=== PATIENT | male | born 2005 | race Caucasian/White ===

== ENCOUNTER 2024-07-22 04:28 | Emergency (ER) | payer OTHER, SELFPAY ==
--- NOTE | 2024-07-22 | ECG_ITS ---
Test Reason : CHEST PAIN Blood Pressure : / mmHG Vent. Rate : 123 BPM Atrial Rate : 123 BPM P-R Int : 140 ms QRS Dur : 092 ms QT Int : 308 ms P-R-T Axes : 063 070 028 degrees QTc Int : 440 ms Sinus tachycardia Nonspecific T wave abnormality Abnormal ECG No previous ECGs available Referred By: Generic ED Physician Electronically Signed By:GINNA ARELLANO MD
--- NOTE | ~2024-07-22 | XR_ITS ---
CLINICAL HISTORY: chest pain, flu like symptoms 2 view chest x-ray Comparison: None Findings: The lungs are clear. Heart size is normal. No acute fracture. Webber rods are present. IMPRESSION: 1. No acute findings. This document has been electronically signed by: Blake Cabrales MD on 07/22/2024 05:35:30
[2024-07-22 04:39] VITALS: BP 129/66; PULSE 122; RESP 18; TEMP 38; O2SAT 96; BMI 25.3
--- NOTE | 2024-07-22 04:52 | PC.NURSE ---
charge manager made aware of sx/vitals.
[2024-07-22 05:02] LABS: MANUAL DIFF FLAG NO
[2024-07-22 05:03] LABS: Basophils Percent Auto 0.3 % (0-2); Eosinophils Absolute Auto 0.1 X10*3/uL (0.0-0.4); Hematocrit 42.5 % (42.0-52.0); Hemoglobin 15.4 g/dl (14.0-18.0); Imm Gran Abs Auto 0.01 X10*3/uL (0.00-0.03); Imm Gran Pct Auto 0.2 % (0.0-0.4); Lymphocytes Absolute Auto 0.6 X10*3/uL (1.2-4.9); Lymphocytes Percent Auto 9.5 % (20-40); Mean Corpuscular HGB Conc 36.2 g/dl (31.0-36.0); Mean Corpuscular Hemoglobin 29.6 pg (27.0-33.0); Mean Corpuscular Volume 81.7 fL (80.0-98.0); Mean Platelet Volume 10.1 fL (9.4-12.4); Monocytes Absolute Auto 0.7 X10*3/uL (0.1-1.2); Monocytes Percent Auto 11.1 % (2-11); Neutrophils Absolute Auto 4.9 x10*3/uL (2.0-8.3); Neutrophils Percent Auto 77.9 % (45-73); Platelet Count 171 X10*3/uL (160-400); Red Cell Distribution Width 12.3 % (11.0-16.0); White Blood Count 6.2 X10*3/uL (4.8-10.8)
[2024-07-22 05:08] LABS: IDNOW Serial# 08D9AD1C; Strep A Nucleic Acid Negative (Negative)
[2024-07-22 05:15] LABS: Alanine Aminotransferase 36 U/L (0-40); Albumin Level 4.7 g/dL (3.5-5.0); Alkaline Phosphatase 80 U/L (39-117); Anion Gap 16 (12-20); Aspartate Amino Transferase 30 U/L (5-37); Bilirubin Total 1.9 mg/dL (0.0-1.0); Blood Urea Nitrogen 13 mg/dL (9-16); Calcium 9.9 mg/dL (8.4-10.2); Carbon Dioxide 22 mmol/L (22-29); Chloride 106 mmol/L (96-108); Creatinine Clr Calc Pharmacy 139.2; Estimated Glomerular Filt Rate > 60; Glucose Random 99 mg/dL (60-115); Potassium 4.2 mmol/L (3.3-5.1); Sodium 140 mmol/L (135-145); Total Protein 7.9 g/dL (6.5-8.0)
[2024-07-22 05:23] LABS: Troponin-I High Sensitivity < 2.7 ng/L (<3.5-35.0)
[2024-07-22 05:40] LABS: Influenza A PCR POSITIVE (Negative); Influenza B PCR NEGATIVE (Negative); Resp Syncy Virus RNA Qual PCR NEGATIVE (Negative); SARS COV2 PCR INHOUSE NEGATIVE (Negative)
[2024-07-22 06:48] VITALS: BP 127/71; PULSE 111; RESP 18; TEMP 37.6; O2SAT 97
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
--- NOTE | 2024-07-22 07:20 | ED_ITS ---
HPI - General Adult General Chief complaint: General Medical Stated complaint: chest pain Time Seen by Provider: 07/22/24 07:02 Source: patient Mode of arrival: ambulatory Limitations: no limitations History of Present Illness ED Provider: Nela Daniel APRN HPI narrative: 19-year-old male with a history juvenile asthma, muscular dystrophy (ambulatory), Friedreich's ataxia, Charcot Katy presents to the ER with greater than 3 days subjective fevers, chills, body ache, chest discomfort with coughing, nausea, generalized weakness. Patient here with sister who has similar symptoms. Denies shortness of breath, neck pain, neck stiffness, vomiting, diarrhea, skin rash. Related Data Previous Rx's ?Medication ?Instructions ?Recorded albuterol sulfate 2.5 mg/0.5 mL 5 mg inhalation QID PRN shortness 07/22/24 solution for nebulization of breath or wheezing #30 ea albuterol sulfate 90 mcg/actuation 2 puff inhalation Q4H PRN 07/22/24 aerosol inhaler shortness of breath or wheezing #6.7 grams Allergies Allergy/AdvReac Type Severity Reaction Status Date / Time No Known Allergies Allergy Verified 07/22/24 04:44 Review of Systems 2 Review of Systems: Yes all other systems are reviewed and are negative Constitutional: Constitutional: Reports no additional constitutional complaints, Reports body ache(s), Reports chills, Reports fever(s), Denies headache(s) and Reports weakness Eyes: Eyes: Reports no additional eye complaints and Denies change in vision ENT: Reports system reviewed and no additional complaints, except as documented, Denies dizziness, Denies headache(s), Denies nasal congestion, Denies nasal discharge and Denies neck pain Cardiovascular: Cardiovascular: Reports no additional cardiovascular complaints, Reports chest pain, Denies leg edema and Denies dyspnea Respiratory: Respiratory: Reports no additional respiratory complaints, Reports cough and Denies dyspnea Gastrointestinal: Gastrointestinal: Reports no additional gastrointestinal complaints, Denies abdominal pain, Denies diarrhea, Reports nausea and Denies vomiting Genitourinary: Genitourinary: Denies urinary incontinence Musculoskeletal: Musculoskeletal: Reports no additional musculoskeletal complaints, Denies back pain, Denies arthralgias, Denies joint swelling, Denies neck pain, Denies numbness and Denies tingling Integumentary/Breasts: Skin/Breast: Reports system reviewed and no additional complaints, except as docu and Denies rash Neurologic: Reports system reviewed and no additional complaints, except as documented, Denies Abnormal speech present, Denies dizziness, Denies headache(s), Denies numbness, Denies tingling and Reports weakness PMFSH Past Medical History Attestation statement: The following information was validated with the patient. Source: old records reviewed and nursing notes reviewed Social History Social History Advance Directives: No Advance Directives Information Provided: Yes Do you have a plan to hurt others: No Plan Physical Exam ED Vital Signs: Vital Signs - 24 hr 07/22/24 04:39 07/22/24 06:48 Temperature 100.4 F 99.7 F Pulse Rate 122 H 111 H Respiratory Rate 18 18 Blood Pressure 129/66 127/71 Pulse Oximetry 96 97 Oxygen Delivery Method Room Air Room Air BMI result Body Mass Index 25.3 Const General: cooperative, healthy appearing, comfortable and no acute distress Orientation/consciousness: patient oriented x3 Limitations: no limitations HENMT Head: Yes normal to inspection Ears: hearing grossly normal bilaterally and TM's normal bilaterally General nose exam: Normal external nose present Face and sinus: Yes normal facial exam Mouth: Normal oral and palatal mucosa present Throat: Yes posterior oropharynx normal, Yes tonsils normal and Yes uvula midline Eyes General: appearance normal, both eyes and all related structures Pupils: Equal, round and reactive pupils present Neck Neck: Yes normal visual inspection, Yes full ROM, Yes no lymphadenopathy and Yes no meningeal signs Chest Chest palpation & inspection: normal inspection of the chest Resp Other: Mild expiratory wheezing Effort & Inspection: normal respiratory effort Cardio Rate: regular rate Rhythm: regular rhythm Peripheral pulses: Peripheral pulses 2+ throughout GI Inspection: Yes normal to inspection Palpation (GI): Soft to palpation and nontender Auscultation: normal bowel sounds Back/Spine/Pelvis Thoracic/Lumbar Spine: thoracic and lumbar spine normal to inspection Skin General skin exam: no rashes or lesions noted Neuro General: patient oriented x3, moves all extremities, no meningeal signs, no focal motor deficits and normal sensation to monofilament Cranial nerves: Yes CN's II-XII intact bilaterally, Yes Equal, round and reactive pupils present, Yes Bilaterally intact EOM present, Yes Nystagmus not present, Yes Normal facial strength present and Yes Midline tongue present Cognition (Neuro): normal cognition Speech: No Abnormal speech present Gait exam (Neuro): Normal gait present Motor exam (neuro): 5/5 motor strength present throughout Sensory Exam: Normal double simultaneous stimulation for sensation Extrem General: Yes normal to inspection, Yes no pedal edema and Yes no calf tenderness Course Course Course Narrative: Influenza A positive with no hypoxia or tachypnea requiring supplemental oxygen or admission to the hospital. Patient is up and ambulatory with a steady gait with normal neurological exam. He is able to eat and drink with no vomiting. He has some mild tachycardia otherwise his vitals are stable. He can orally hydrate at home. Stable for discharge with strict return precautions. Medical Decision Making Medical Decision Making MDM Narrative: 19-year-old male with a history juvenile asthma, muscular dystrophy (ambulatory), Friedreich's ataxia, Charcot Katy presents to the ER with greater than 3 days subjective fevers, chills, body ache, chest discomfort with coughing, nausea, generalized weakness. On arrival patient had low-grade fever and tachycardia which is likely secondary to viral illness. No hypoxia or tachypnea. Stable blood pressure This is a normal exam no focal deficits. He does have some mild expiratory wheezing and reports that he has an albuterol nebulizer machine at home which he uses when ill. Will obtain labs, chest x-ray, viral testing Will review EKG from triage Differential Diagnosis Differential Diagnoses: The differential diagnosis associated with the presentation includes Viral syndrome, influenza, pneumonia Low suspicion for PE-no hypoxia, no tachypnea, no clinical findings concerning for DVT, no risk factors for same Low suspicion for ACS-HPI is atypical, symptoms for greater than 3 days with nonischemic EKG and negative troponin Admission/Observation Consideration of admission/observation: Escalation of care including admission/observation considered see course of care Lab Data [facility] Lab Attestation statement: I reviewed the patient's lab results. 07/22/24 04:54 07/22/24 04:54 Labs: Lab Results 07/22/24 07/22/24 Range/Units 04:54 04:55 WBC 6.2 (4.8-10.8) X10*3/uL RBC 5.20 (4.60-5.80) X10*6/uL Hgb 15.4 (14.0-18.0) g/dl Hct 42.5 (42.0-52.0) % MCV 81.7 (80.0-98.0) fL MCH 29.6 (27.0-33.0) pg MCHC 36.2 H (31.0-36.0) g/dl RDW 12.3 (11.0-16.0) % Plt Count 171 (160-400) X10*3/uL MPV 10.1 (9.4-12.4) fL Immature Gran % (Auto) 0.2 (0.0-0.4) % Neut % (Auto) 77.9 H (45-73) % Lymph % (Auto) 9.5 L (20-40) % Emmons % (Auto) 11.1 H (2-11) % Eos % (Auto) 1.0 (0-4) % Baso % (Auto) 0.3 (0-2) % Lymph # (Auto) 0.6 L (1.2-4.9) X10*3/uL Emmons # (Auto) 0.7 (0.1-1.2) X10*3/uL Eos # (Auto) 0.1 (0.0-0.4) X10*3/uL Baso # (Auto) 0.0 (0.0-0.2) X10*3/uL Abs Immat Gran (auto) 0.01 (0.00-0.03) X10*3/uL Absolute Neuts (auto) 4.9 (2.0-8.3) x10*3/uL Absolute Nucleated RBC 0.000 (0.0-0.012) X10*3/uL Nucleated RBC % (auto) 0.0 (0.0-0.2) /100WBC Sodium 140 (135-145) mmol/L Potassium 4.2 (3.3-5.1) mmol/L Chloride 106 (96-108) mmol/L Carbon Dioxide 22 (22-29) mmol/L Anion Gap 16 (12-20) BUN 13 (9-16) mg/dL Creatinine 0.73 (0.5-1.4) mg/dL Estim Creat Clear Calc 139.2 Estimated GFR > 60 Random Glucose 99 (60-115) mg/dL Calcium 9.9 (8.4-10.2) mg/dL Total Bilirubin 1.9 H (0.0-1.0) mg/dL AST 30 (5-37) U/L ALT 36 (0-40) U/L Alkaline Phosphatase 80 (39-117) U/L Troponin I High Sens < 2.7 (<3.5-35.0) ng/L Total Protein 7.9 (6.5-8.0) g/dL Albumin 4.7 (3.5-5.0) g/dL Influenza Type A (PCR) POSITIVE A (Negative) Influenza Type B (PCR) NEGATIVE (Negative) RSV RNA Qual (PCR) NEGATIVE (Negative) SARS-CoV-2 RNA (RT-PCR) NEGATIVE (Negative) S. pyogenes GrpA PILY Negative (Negative) Independent Interpretation I performed an independent interpretation of an: EKG and Plain X-Ray Interpretation: I independently viewed the chest x-ray and agree with the radiology report Independently reviewed the EKG which shows sinus tachycardia with a rate of 123, normal CT, normal QRS, normal QT Radiology Impression Discussion of test interpretation with radiology: I have reviewed the radiologist's reading. Radiologist Impression: [place] [id number] XRay Report Signed Patient: Dandy Baxter MR#: [id number] : 2005 Acct:[id number] Age/Sex: 19 / M ADM Date: 07/22/24 Loc: .ED Attending Dr: Ordering Physician: Generic ED Physician Date of Service: 07/22/24 Procedure(s): XR chest 2V Accession Number(s): [id number] cc: Generic ED Physician; Diego Hickman MD~ CLINICAL HISTORY: chest pain, flu like symptoms 2 view chest x-ray Comparison: None Findings: The lungs are clear. Heart size is normal. No acute fracture. Webber rods are present. IMPRESSION: 1. No acute findings. This document has been electronically signed by: Blake Cabrales MD on 07/22/2024 05:35:30 Independent Historian Clinical information obtained from an independent historian. History obtained from or confirmed by: Other (Sister) Tests considered The following testing was considered but not selected: Low suspicion for PE, no need for D-dimer or CTA Prescription Management I considered prescription management with: Antiviral Discussed Tamiflu, would not be helpful due to length of symptoms and may cause for the side effects. Shared decision-making with patient to not prescribe Chronic Conditions Patient?s care impacted by: Other See course of care Discharge Plan Discharge Clinical Impression: Influenza A Patient Disposition: Home, Self-Care Instructions: Influenza (ED) Additional Instructions: Your flu test is positive. Your x-ray is normal. Your labs are reassuring. Use your albuterol 2 puffs every 4 hours as needed for cough or wheezing or your machine if your at home. Take Motrin or Tylenol if able as needed for pain or fever Return for worsening symptoms Prescriptions: New albuterol sulfate 90 mcg/actuation HFA aerosol inhaler 2 puff inhalation Q4H PRN (Reason: shortness of breath or wheezing) Qty: 6.7 0RF albuterol sulfate 2.5 mg/0.5 mL solution for nebulization 5 mg inhalation QID PRN (Reason: shortness of breath or wheezing) Qty: 30 0RF Referrals: Physician,Unknown J [Primary Care Provider] - 1 week Stand Alone Forms: Work/School Release Print Language: Spanish
[2024-07-22] MEDS: Acetaminophen 325 MG TABLET 975 MG PO (07:40)
[2024-07-22 07:46] VITALS: BP 127/71; PULSE 111; RESP 18; TEMP 37.6; O2SAT 97
== END 2024-07-22 07:46 | disposition home or self-care (01) ==
PROVIDERS: Emergency Provider Emergency Medicine
DX: J10.1 Influenza due to other identified influenza virus with other respiratory manifestations (principal); R07.89 Other chest pain; R50.9 Fever, unspecified; M79.10 Myalgia, unspecified site; R11.2 Nausea with vomiting, unspecified; R53.1 Weakness; Z03.818 Encounter for observation for suspected exposure to other biological agents ruled out; Z79.899 Other long term (current) drug therapy
CPT/HCPCS: 0241U; 71046; 80053; 84484; 85025; 87651; 93005; 99283

== ENCOUNTER → 2024-07-22 04:34 | Outpatient (BNV) | payer OTHER, SELFPAY | PROVIDERS: Emergency Provider Emergency Medicine; Visit Provider Internal Medicine Cardiovascular Disease | DX: R00.0 Tachycardia, unspecified (principal) | CPT/HCPCS: 93010 ==

== ENCOUNTER → 2024-07-22 04:58 | Outpatient (BNV) | payer OTHER, SELFPAY | PROVIDERS: PCP Pediatrics; Visit Provider Radiology Diagnostic Radiology | DX: J10.1 Influenza due to other identified influenza virus with other respiratory manifestations (principal); R07.9 Chest pain, unspecified | CPT/HCPCS: 71046 ==